=== PATIENT | female | born 1985 | race Caucasian/White ===

== ENCOUNTER 2017-03-12 22:43 | Emergency (ER) | payer MEDICAID ==
[~2017-03-12] VITALS: Ht 157.5 cm; Wt 72.6 kg
--- NOTE | 2017-03-13 00:41 | NUR ---
Pt ACACIASELEmy, AMB TO ER BED 3, CONSTIPATED X 3 DAYS, WAS GIVEN MEDICATION (PT CANNOT RECALL). A/OX3, VERBAL, ABLE TO MAKE NEEDS KNOWN, RR EVEN AND UNLABORED, NO SOB.
--- NOTE | 2017-03-13 00:41 | NUR ---
BP 165/96. MD AWARE OF ELEVATED BP
[2017-03-13] MEDS ORDERED: MAGNESIUM CITRATE 296 ML BOTTLE ONE (01:48)
--- NOTE | 2017-03-13 01:55 | NUR ---
GIVEN PO MED PER MD ORDER
--- NOTE | 2017-03-13 01:56 | NUR ---
Patient discharged to home in stable condition. Written and verbal after care instructions given. Patient verbalizes understanding of instruction. Pt ambulatory with a steady gait
[2017-03-13 01:57] VITALS: BP 165/96
[2017-03-13] MEDS ORDERED: MAGNESIUM CITRATE 296 ML BOTTLE PO ONE (02:00)
== END 2017-03-13 01:59 | disposition home or self-care (01) ==
LOC: ER 22:46
DX: K59.00 Constipation, unspecified (principal)
CPT/HCPCS: 74000; 99284; A4606; Z7610